=== PATIENT | female | born 1970 | race Two or more races ===

== ENCOUNTER → 2019-12-01 | Outpatient (CLI) | payer OTHER ==
--- NOTE | 2019-12-01 15:25 | KCIC ---
MRI Cervical Spine Without Contrast History:Neck pain, right arm pain Technique: Multiplanar, multi sequential noncontrast MR imaging was performed of the cervical spine. Comparison: None Findings: Cervical cord caliber is within normal limits, no defined or expansile signal abnormality. There is no significant focal marrow edema. Cervical vertebral body stature is maintained. There is straightening of the cervical spine, very mild reversal of the lordotic curvature centered near C5. There is mild degenerative disc disease C5-6. There is small posterior annular tear at C5-6. AP alignment is within normal limits. There is mild levoscoliosis of the cervical spine. C2-C3: Neural foramina and spinal canal are adequate. C3-C4: Neural foramina and spinal canal are adequate. C4-C5: Neural foramina and spinal canal are adequate. There is [id number]-rv-[id number] facet degenerative change bilaterally. C5-C6: There is moderate to severe facet degenerative change bilaterally. There is very minimal disc osteophyte complex. Spinal canal and neural foramina are adequate. C6-C7: Spinal canal and neural foramina are adequate. There is facet hypertrophic change bilaterally. C7-T1: Neural foramina and spinal canal are adequate. Impression: 1. There is no significant spinal stenosis or neural foramina compromise. There is mild degenerative disc disease and spondylosis at C5-6. There is multilevel facet degenerative change greater inferiorly of the cervical spine. Electronically signed by: Fred Cook MD (12/01/2019 3:22 PM) [id number]
== END ==
LOC: KCIC MRI 14:29
PROVIDERS: ATTEND Orthopaedic Surgery Sports Medicine
DX: M50.322 Other cervical disc degeneration at C5-C6 level (principal); M47.812 Spondylosis without myelopathy or radiculopathy, cervical region; M25.78 Osteophyte, vertebrae
CPT/HCPCS: 72141

== ENCOUNTER → 2020-01-03 | Outpatient (CLI) | payer OTHER ==
[~2020-01-03] MED LIST: ACET325T9 PO; ASCO500C PO; IBUP200T44 PO
--- NOTE | 2020-01-03 10:47 | PDOC2 ---
INITIAL PAIN CONSULT DATE OF SERVICE: DOS: DATE: 01/03/20 TIME: 10:39 CHIEF COMPLAINT: Chief Complaint: Neck, shoulder and right upper extremity pain HISTORY OF PRESENT ILLNESS: 49-year-old female presents history of pain base the neck and right upper extremity shoulder and arm for about 8 months without any specific injury or accident that she is aware of. 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 Patient reports it is constant pain is stabbing sharp throbbing shooting in the right upper extremity shoulder posteriorly in the scapular region also anteriorly into the pectoral region into the posterior deltoid anterior deltoid biceps triceps into the forearm and hand especially of the thumb and the third finger with some numbness and tingling patient which is aching in the neck tingling numbness radiating the right upper extremity. Patient reports no pain in the left upper extremity worse with repetitive motions once again reaching over her head with her right arm or lifting items and reaching forward patient ports he wakes her from sleep about 2-3 times a night does not affect her bowel bladder control or ability to walk. Patient is tried physical therapy also dry needling exercise which is going on constantly and traction with the cervical spine as well all which were helpful but only very temporary relief. Patient rates her disability of 0-10 10 me the worst is a 7 with family home responsibilities and occupation 6 with recreation 5 with social activity sexual behavior and self-care 9 with life support activities. Patient is tried Tylenol Motrin also icy hot which helped to a mild extent. Patient did have a MRI scan of the cervical spine showing mild degenerative disc disease and spondylosis C5-6 moderate to severe facet degenerative change bilaterally. Patient reports no loss of motor function but significant fatigability with repetitive motions upper extremity again no symptoms on the left. PAST MEDICAL HISTORY: PMH: No major medical problems or conditions patient is been in generally good health PREVIOUS SURGERIES: Past Surgical Hx: , wisdom tooth extraction CURRENT MEDICATIONS: Current Meds: Active Scripts Medications Dose Route/Sig Max Daily Dose Days Date Category Vitamin C (Ascorbic Acid) 500 Mg Capsule.er 2 Cap PO DAILY 30 01/03/20 Reported Tylenol (Acetaminophen) 325 Mg Tablet 1,000 Mg PO DAILY 01/03/20 Reported Motrin Ib (Ibuprofen) 200 Mg Tablet 200 Mg PO Q6H PRN 01/03/20 Reported ALLERGIES; Allergies: Coded Allergies: Latex, Natural Rubber (Verified Allergy, Intermediate, rash, 01/03/20) FAMILY HISTORY: Family Hx: Stomach cancer patient's father, thyroid disease and patient sister, diabetes in patient's mother SOCIAL HISTORY: Social Hx: Patient drinks alcohol 1 to 2 glasses a month does not smoke not use any illegal illicit or recreational drugs, is lives with her spouse has 2 children living at home, lives in [facility]. REVIEW OF SYSTEMS: ROS: Positive for those items mentioned in history of present illness, all systems are reviewed, otherwise negative, is complete full and well-documented on patient's chart PHYSICAL EXAM: VS: Blood pressure is 115/81 pulse 81 respiration 16 temperature is 90.3 F height is 5 foot weight is 1 1 9 pounds PE: PHYSICAL EXAMINATION: GENERAL: The patient is awake, alert, oriented, appropriate, very pleasant demeanor HEENT: Shows normocephalic, atraumatic. Extraocular movements are intact and symmetrical. Oral cavity: Mucous membranes moist and pink. Dentition is intact. NECK: Shows anterior throat supple without palpable lymphadenopathy noted. Swallow reflex symmetrical. CHEST: Shows normal on inspection. Breath sounds are clear bilaterally, no rales rhonchi or wheezes auscultated. HEART: Shows S1, S2 clear. No murmurs auscultated. ABDOMEN: Soft, nontender, nondistended. No palpable organomegaly is noted. No rebound or guarding demonstrated. BACK: Shows spine grossly in the midline. Normal-appearing cervical lordotic curvature, cervical spine shows good rotation motion with some moderate tenderness with extension and especially with forward flexion with pulling sensation in the right inferior aspect of the neck and right shoulder. There is slightly increased thoracic kyphosis, some minor flattening of the lumbar lordotic curvature. Lumbar paraspinous muscles show symmetrical on inspection, on palpation shows some moderate tenderness diffusely throughout without specific trigger points, without radiation of pain. The patient has good rotational motion of the lumbar spine, both laterally as well as extension and flexion without significant difficulty. No tenderness over the spinous processes, sacrum or sacroiliac regions. EXTREMITIES: Upper extremities show deep tendon reflexes 2+ in the biceps and tricep tendons. Motor exam is 4 on a scale of 5 with right rail bender strength, biceps and triceps flexion and 5/5 on the left. Peripheral pulses are 2+ radial. No peripheral edema is noted bilaterally. Upper extremities are warm and dry to touch, equal in color and appearance. Shoulder shrug is strong and intact without loss of strength on resistance as is abduction of the shoulder at 90 degrees without loss of strength on resistance but with moderate pain in the base of the neck and the right shoulder with each of these maneuvers. SKIN: Shows warm and dry, good turgor. No edema. No sores, rashes or bruising throughout. IMPRESSION: Impression: 49-year-old female with 8-month history increasing pain base of neck right upper extremity radicular fashion MRI scan cervical spine as noted Status post physical therapy dry needling and traction Options discussed with the patient including conservative medical management physical therapies interventional techniques. Patient would like to pursue interventional techniques, we discussed a cervical epidural steroid injection using description as well as anatomical models to describe the procedure. Patient will await preauthorization with her insurance provider and we will have her return for cervical epidural steroid injection at that time. We will prescribe Medrol Dosepak with instructions and side effects to be aware of discussed and she will try this for the time being. Patient will follow-up in approximately 1 week we will plan on cervical epidural steroid injection at that time SANA KUMAR MD Jan 03, 2020 10:47
== END | disposition home or self-care (01) ==
LOC: PNCL 09:48
PROVIDERS: ATTEND Anesthesiology
DX: M54.2 Cervicalgia (principal); M25.511 Pain in right shoulder; Z88.8 Allergy status to other drugs, medicaments and biological substances; Z79.899 Other long term (current) drug therapy; Z80.0 Family history of malignant neoplasm of digestive organs; Z83.3 Family history of diabetes mellitus
CPT/HCPCS: G0463

== ENCOUNTER → 2020-01-10 | Outpatient (CLI) | payer OTHER ==
[~2020-01-10] MED LIST changes: +IOHEXOL 180 MG/ML 10 ML VIAL. ONE; +methylPREDNISolone ACETATE 40 MG/ML VIAL. ONE; +methylPREDNISolone ACETATE 80 MG/ML VIAL. ONE
--- NOTE | 2020-01-10 09:19 | PDOC ---
Progress Note - Pain Clinic Date of Service: DOS: DATE: 01/10/20 TIME: 09:16 Diagnosis: Dx: Cervical radiculopathy with cervical degenerative disc disease History or Present Illness: HPI: 49-year-old female returns follow-up status post initial evaluation preauthorization for cervical epidural steroid injection. Patient has obtained this now would like to proceed reports still significant pain base neck and right upper extremity right shoulder right arm right hand with numbness and tingling aching sharp dull tight shooting radiating on and off intensity worse with activity weight lifting reaching above her head with her right hand. Patient reports the pain is an 8 on scale 10 is worse over the past week 6 on average 6 at its least is a 6 today. Patient reports no new motor or sensory deficits no new changes. Physical Exam: VS: Blood pressure is 107/62 pulse 63 respirations 18 temperature 98.0 F height is 5 foot weight is 118 pounds PE: PHYSICAL EXAMINATION: GENERAL: The patient is awake, alert, oriented, appropriate, very pleasant demeanor HEENT: Shows normocephalic, atraumatic. Extraocular movements are intact and symmetrical. NECK: Shows anterior throat supple without palpable lymphadenopathy noted. Swallow reflex symmetrical. CHEST: Shows normal on inspection. Breath sounds are clear bilaterally. HEART: Shows S1, S2 clear. No murmurs auscultated. ABDOMEN: Soft, nontender, nondistended. No palpable organomegaly is noted. No rebound or guarding demonstrated. BACK: Shows spine grossly in the midline. Normal-appearing cervical lordotic curvature, cervical spine shows good rotation motion both laterally as well as extension flexion without significant increase in pain. Posterior cervical musculature show symmetrical on inspection with palpation some moderate tenderness diffusely only diffusely without significant radiation. There is s lightly increased thoracic kyphosis, some minor flattening of the lumbar lordotic curvature. EXTREMITIES: Upper extremities show deep tendon reflexes 2+ in the biceps and triceps tendons. Motor exam is 4 on a scale of 5 with right batter mixer helper strength biceps and triceps flexion and 5/5 on the left. Peripheral pulses are 2+ radial. No peripheral edema is noted bilaterally. Upper extremities are warm and dry to touch, equal in color and appearance. SKIN: Shows warm and dry, good turgor. No edema. No sores, rashes or bruising throughout. Procedure: Procedure: Options were discussed with the patient. Patient chart was reviewed as her current medication regimen updated current review of systems updated today as well. We will proceed with a cervical epidural steroid injection today with fluoroscopic guidance. Risks were discussed including but not limited to: Bleeding, infection, possibility of epidural hematoma and subsequent neurological compromise, dural puncture, headaches, spinal cord and/or nerve damage, side effects of steroid medication, and poor results regarding pain control. Patient understands wished to proceed. Patient return to the clinic in approximately 2 weeks for follow-up was counseled as to return appointment activity level and side effects to be aware of. Medication Injected: Med Injected: Procedure cervical epidural steroid injection at the C6-7 level, using local anesthetic under sterile prep and drape using C-arm fluoroscopic guidance under local anesthesia medications injected ; 120 mg Depo-Medrol + 5 mL normal saline and 2 mL contrast; condition at discharge is stable patient tolerated procedure well. and had no complications Condition at Discharge: Condition at Discharge: Condition at discharge stable patient tolerated procedure well had no complications. SANA KUMAR MD Jan 10, 2020 09:19
== END | disposition home or self-care (01) ==
LOC: PNCL 08:30
PROVIDERS: ATTEND Anesthesiology
DX: M50.123 Cervical disc disorder at C6-C7 level with radiculopathy (principal); Z83.3 Family history of diabetes mellitus; Z79.899 Other long term (current) drug therapy; Z88.8 Allergy status to other drugs, medicaments and biological substances
CPT/HCPCS: 62321; J1030; J1040; Q9965

== ENCOUNTER → 2020-01-27 | Outpatient (CLI) | payer OTHER ==
--- NOTE | 2020-01-27 08:43 | PDOC ---
Progress Note - Pain Clinic Date of Service: DOS: DATE: 01/27/20 TIME: 08:39 Diagnosis: Dx: Cervical radiculopathy with cervical degenerative disc disease History or Present Illness: HPI: 49-year-old female returns follow-up status post cervical epidural steroid injection x1. Patient reports about 50% improvement after about 3 to 4 days following the injection and was increased pain during that time. But then the pain decreased significantly especially in the right arm patient reports is feeling very good pushing the right hand the fingers are still feeling better patient reports her pain is an aching pain is tight and shooting the right arm tingling and stabbing radiating at times in the right shoulder sometimes the anterior deltoid and anterior clavicular region also into the arm forearm and hand with some tingling in the fingers patient ports is an 8 on scale 10 is worse over the past week 5 on average 3 at its least and is a 5 today patient reports no new motor or sensory deficits still improved but the pain returning in the right upper extremity and base of neck. Patient ports generally does not awaken her from sleep at night but can over the past few days but every 5-6 hours. Physical Exam: VS: Blood pressure is 120/74 pulse 61 respiration 16 temperature 98.2 F height is 5 foot weight is 120 pounds PE: PHYSICAL EXAMINATION: GENERAL: The patient is awake, alert, oriented, appropriate, very pleasant demeanor HEENT: Shows normocephalic, atraumatic. Extraocular movements are intact and symmetrical. Oral cavity: Mucous membranes moist and pink. NECK: Shows anterior throat supple without palpable lymphadenopathy noted. Swallow reflex symmetrical. CHEST: Shows normal on inspection. Breath sounds are clear bilaterally, no rales rhonchi wheezes. HEART: Shows S1, S2 clear. No murmurs auscultated. ABDOMEN: Soft, nontender, nondistended. No palpable organomegaly is noted. No rebound or guarding demonstrated. BACK: Shows spine grossly in the midline. Normal-appearing cervical lordotic curvature. There is slightly increased thoracic kyphosis, some minor flattening of the lumbar lordotic curvature. Lumbar paraspinous muscles show symmetrical on inspection, on palpation shows some moderate tenderness diffusely throughout the upper, middle and lower distribution of the paraspinous muscles bilaterally without specific trigger points, without radiation of pain. The patient has good rotational motion of the lumbar spine, both laterally as well as extension and flexion without significant difficulty. No tenderness over the spinous processes, sacrum or sacroiliac regions. EXTREMITIES: Upper extremities show deep tendon reflexes 2+ in the biceps and triceps tendons. Motor exam is 4 on a scale of 5 with right inspector receiving strength bi ceps and triceps flexion and 5/5 on the left. Peripheral pulses are 2+ posterior radial. No peripheral edema is noted bilaterally. Upp[er extremities are warm and dry to touch, equal in color and appearance. SKIN: Shows warm and dry, good turgor. No edema. No sores, rashes or bruising throughout. Procedure: Procedure: Options were discussed with the patient. Patient's old chart was reviewed as her current medication regimen updated current review of systems updated today as well. We will proceed with a second in the series of cervical epidural steroid injection today with fluoroscopic guidance. Risks were discussed including but not limited to: Bleeding, infection, possibility of epidural hematoma and subsequent neurological compromise, dural puncture, headaches, spinal cord and/or nerve damage, side effects of steroid medication, and poor results regarding pain control. Patient understands wished to proceed. Patient will return to the clinic in approximate 2 weeks for follow-up was counseled as to return appointment activity level and side effects to be aware of. Medication Injected: Med Injected: Procedure cervical epidural steroid injection at the C6-7 level, using local anesthetic under sterile prep and drape using C-arm fluoroscopic guidance under local anesthesia medications injected ; 120 mg Depo-Medrol + 5 mL normal saline and 2 mL contrast; condition at discharge is stable patient tolerated procedure well. and had no complications Condition at Discharge: Condition at Discharge: Condition at discharge is stable patient tolerated the procedure well and had no complications. SANA KUMAR MD Jan 27, 2020 08:43
== END ==
LOC: PNCL 07:55
PROVIDERS: ATTEND Anesthesiology
DX: M50.123 Cervical disc disorder at C6-C7 level with radiculopathy (principal); Z88.8 Allergy status to other drugs, medicaments and biological substances; Z79.899 Other long term (current) drug therapy; Z83.3 Family history of diabetes mellitus
CPT/HCPCS: 62321; J1030; J1040; Q9965

== ENCOUNTER → 2021-01-21 | Outpatient (CLI) | payer OTHER ==
[~2021-01-21] MED LIST changes: -IOHEXOL 180 MG/ML 10 ML VIAL. ONE; -methylPREDNISolone ACETATE 40 MG/ML VIAL. ONE; -methylPREDNISolone ACETATE 80 MG/ML VIAL. ONE
--- NOTE | 2021-01-21 10:47 | KCIC ---
EXAM: Cervical spine MRI without contrast. HISTORY: Cervical disc herniation. Right hand swelling. Right upper extremity radiculopathy. TECHNIQUE: Multiplanar, multisequence magnetic resonance imaging of the cervical spine was performed without contrast. COMPARISON: 12/01/2019 FINDINGS: There is mild reversal cervical lordosis. There is no listhesis. The vertebral bodies are n ormal in height and demonstrate normal marrow signal intensity. No spinal cord lesion is seen. The sk ull base and posterior fossa are unremarkable. There is no acute or subacute fracture or suspicious o sseous lesion. At C2-C3, there is no stenosis. At C3-C4, there is a disc bulge with posterior annular tear and endplate remodeling. There is mild bi lateral facet arthropathy. There is uncovertebral arthropathy. There is no stenosis. At C4-C5, there is endplate remodeling. There is mild left greater than right facet arthropathy. Ther e is uncovertebral arthropathy. There is minimal right foraminal stenosis. At C5-C6, there is a disc bulge and endplate remodeling. There is mild bilateral facet arthropathy. T here is uncovertebral arthropathy. There is minimal right foraminal stenosis. At C6-C7, there is endplate remodeling. There is mild bilateral facet arthropathy. There is mild righ t foraminal stenosis. IMPRESSION: Multilevel degenerative change involving the cervical spine, described in detail above. S ulci with minimal right foraminal stenosis at C4-C5 and C5-C6 and mild right foraminal stenosis at C6 -C7. Electronically signed by: Teresa Gonzalez MD (01/21/2021 10:45 AM) [id number]
== END ==
LOC: KCIC MRI 09:11
PROVIDERS: ATTEND Neurological Surgery
DX: M47.812 Spondylosis without myelopathy or radiculopathy, cervical region (principal); M50.21 Other cervical disc displacement, high cervical region; M48.02 Spinal stenosis, cervical region
CPT/HCPCS: 72141